=== PATIENT | male | born 1955 | race African-American/Black ===

== ENCOUNTER 2021-05-29 08:35 | Day surgery (SDC) | payer BC ==
[2021-05-21 16:26] VITALS: BMI 29.2
[2021-05-29] MEDS ORDERED: SODIUM CHLORIDE 0.9% P/F 10 ML VIAL IJ ONE (08:49)
[2021-05-29] MEDS ORDERED: BUPIVACAINE LIPOSOME/PF (EXPAREL) 266 MG/20 ML VIAL ONE (08:49)
[2021-05-29] MEDS ORDERED: MIDAZOLAM HCL 2 MG/2 ML SINGLE DOSE VIAL ONE ×2 (08:49→10:40)
[2021-05-29] MEDS ORDERED: BUPIVACAINE HCL/PF 0.5% (5MG/ML) 10 ML VIAL ONE (08:49)
[2021-05-29] MEDS ORDERED: PROPOFOL 20 ML ONE (08:50)
[2021-05-29] MEDS: CELECOXIB 200 MG CAPSULE PO ONE ×2 (09:00→13:12)
[2021-05-29] MEDS ORDERED: VANCOMYCIN 1,000 MG VIAL (RESTRICTED TO ID ONLY) ONE (09:33)
[2021-05-29] MEDS ORDERED: ceFAZolin SODIUM 1 GM VIAL ONE ×3 (09:33→13:47)
[2021-05-29] MEDS ORDERED: THROMBIN (BOVINE) 5,000 UNIT VIAL TP ONE (09:59)
[2021-05-29] MEDS ORDERED: BUPIVICAINE 0.25%/MORPH PF/KETOROLAC - 51ML DISP.SYRINGE IA ONE ×3 (10:00→11:21)
[2021-05-29] MEDS ORDERED: BUPIVACAINE HCL 50 ML ONE (10:25)
[2021-05-29] MEDS ORDERED: TRANEXAMIC ACID 1000 MG/10 ML VIAL IVPUSH ONE (10:30)
[2021-05-29] MEDS ORDERED: CEFAZOLIN 2 GM in DEXTROSE 5%-WATER - 50 ML IVPB ONE ×2 (10:30→14:00)
[2021-05-29] MEDS ORDERED: TRANEXAMIC ACID 1000 MG/10 ML VIAL ONE (11:50)
[2021-05-29] MEDS ORDERED: DEXAMETHASONE SOD PHOSPHATE 4 MG/1 ML VIAL ONE (11:50)
[2021-05-29] MEDS ORDERED: ONDANSETRON 4 MG/2 ML VIAL ONE (11:50)
[2021-05-29] MEDS ORDERED: KETOROLAC TROMETHAMINE 30 MG/1 ML VIAL ONE (11:50)
[2021-05-29] MEDS ORDERED: ACETAMINOPHEN INJECTION 100 ML IVPB ONE (12:17)
[2021-05-29] MEDS ORDERED: ONDANSETRON 4 MG/2 ML VIAL IVPUSH PRN ×2 (12:18→15:48)
[2021-05-29] MEDS ORDERED: oxyCODONE HCL 5 MG TABLET PO ONE (12:18)
[2021-05-29] MEDS ORDERED: ACETAMINOPHEN 1000 MG/100 ML VIAL IVPB ONE (12:19)
[2021-05-29] MEDS ORDERED: LACTATED RINGERS SOLUTION 1,000 ML IV SCH (12:30)
[2021-05-29] MEDS ORDERED: DEXTROSE 5%-WATER - 50 ML IVPB ONE (13:47)
[2021-05-29] MEDS ORDERED: ceFAZolin 2 GRAM PREMIX BAG IVPB ONE (14:00)
[2021-05-29] MEDS ORDERED: oxyCODONE HCL 5 MG TABLET PO PRN ×2 (15:55)
[2021-05-29] MEDS: CEFAZOLIN 2 GM in DEXTROSE 5%-WATER - 100 ML IVPB SCH (18:13)
[2021-05-29] MEDS: SENNOSIDES/DOCUSATE COMBO (SENNA PLUS) TABLET (UD) PO SCH (21:16)
[2021-05-29] MEDS: DORZOLAMIDE 2% HCL OPHTHALMIC SOLUTION 10 ML BOTTLE OU SCH (23:32)
[2021-05-30] MEDS: CEFAZOLIN 2 GM in DEXTROSE 5%-WATER - 100 ML IVPB SCH ×2 (03:00→11:18)
[2021-05-30] MEDS ORDERED: ASPIRIN 325 MG TABLET PO SCH (08:00)
[2021-05-30] MEDS ORDERED: PANTOPRAZOLE 40 MG TABLET PO SCH (10:00)
[2021-05-30] MEDS ORDERED: MULTIVITAMINS (DAILY MVI) TABLET (FP) PO SCH ×2 (10:00)
[2021-05-30] MEDS ORDERED: PATIENT'S OWN MEDICATION (NON-FORMULARY) (Netarsudil Mesylate [Rhopressa] 2.5 ML Drops) OD SCH (10:00)
[2021-05-30] MEDS: DORZOLAMIDE 2% HCL OPHTHALMIC SOLUTION 10 ML BOTTLE OU SCH (10:04)
[2021-05-30] MEDS: SENNOSIDES/DOCUSATE COMBO (SENNA PLUS) TABLET (UD) PO SCH (10:04)
[2021-05-30 10:09] VITALS: BP 142/55; PULSE 64; TEMP 98.7
[2021-05-30] MEDS ORDERED: LATANOPROST 0.005% OPHTH SOLN 2.5ML BOTTLE OD SCH (22:00)
[2021-05-30] MEDS ORDERED: ATORVASTATIN CA 20 MG TABLET (FP) PO SCH (22:00)
== END 2021-05-30 14:24 | disposition home health service (06) ==
LOC: FASUSAT 08:35 → FM/S 13:20 → FASUSAT 05-30 14:24
PROVIDERS: ATTEND Orthopaedic Surgery
PROC: 8E0YXBZ Computer Assisted Procedure of Lower Extremity (ICD-10-PCS; 2021-05-29)
PROC: 8E0Y0CZ Robotic Assisted Procedure of Lower Extremity, Open Approach (ICD-10-PCS; 2021-05-29)
PROC: 0SRC0L9 Replacement of Right Knee Joint with Medial Unicondylar Synthetic Substitute, Cemented, Open Approach (ICD-10-PCS; principal; 2021-05-29 10:50)
DX: M17.11 Unilateral primary osteoarthritis, right knee (principal)
CPT/HCPCS: 20985; 27446; C1776; S2900; 73560-TC-RT-FY; 94760; 97010-GP; 97116-GP; 97161-GP; J0131